=== PATIENT | female | born 1985 | race Caucasian/White ===

== ENCOUNTER 2016-09-06 06:47 | Outpatient (CLI) | payer BC, OTHER | END 2016-09-06 06:48 | disposition home or self-care (01) | DX: Z36 Encounter for antenatal screening of mother (principal) ==

== ENCOUNTER 2016-11-30 07:34 | Outpatient (CLI) | payer OTHER | END 2016-11-30 07:35 | disposition home or self-care (01) | DX: Z34.82 Encounter for supervision of other normal pregnancy, second trimester (principal) ==

== ENCOUNTER 2016-12-26 16:29 | Outpatient (CLI) | payer OTHER ==
[2016-12-26 17:51] LABS: HCT - HEMATOCRIT 38.3 % (37.0-47.0); HGB - HEMOGLOBIN 13.2 g/dL (12.0-16.0); MEAN CORPUSCULAR HEMOGLOBIN 32.7 pg (27.0-31.0); MEAN CORPUSCULAR HGB CONC 34.4 g/dL (32.0-36.0); MEAN PLATELET VOLUME 8.2 fL (7.9-10.8); RED BLOOD COUNT 4.03 10^6/uL (4.20-5.40); RED CELL DISTRIBUTION WIDTH 13.5 % (12.0-15.0)
== END 2016-12-26 16:30 | disposition home or self-care (01) ==
LOC: LAB 16:29
PROVIDERS: ATTEND Nurse Practitioner Obstetrics & Gynecology
DX: Z36 Encounter for antenatal screening of mother (principal)
CPT/HCPCS: 36415; 82950; 86850

== ENCOUNTER 2017-01-31 08:00 | Outpatient (CLI) | payer OTHER | END 2017-01-31 08:01 | LOC: LAB.R 08:00 | PROVIDERS: ATTEND Nurse Practitioner Obstetrics & Gynecology | DX: Z11.3 Encounter for screening for infections with a predominantly sexual mode of transmission (principal) | CPT/HCPCS: 87491; 87591 ==

== ENCOUNTER 2017-02-13 08:00 | Outpatient (CLI) | payer OTHER | END 2017-02-13 08:01 | disposition home or self-care (01) | LOC: LAB.R 08:00 | PROVIDERS: ATTEND Nurse Practitioner Obstetrics & Gynecology | DX: Z36 Encounter for antenatal screening of mother (principal) | CPT/HCPCS: 87081 ==

== ENCOUNTER 2017-03-20 23:29 | Inpatient (IN) | payer OTHER ==
[2017-03-21] MEDS ORDERED: LACTATED RINGERS 1,000 ML IV ONE (00:11)
[2017-03-21] MEDS ORDERED: MINERAL OIL LIGHT 10 ML MC ONE (00:11)
[2017-03-21] MEDS ORDERED: LIDOCAINE 1% 50 ML MDV ONE (00:11)
[2017-03-21] MEDS ORDERED: SODIUM CHLORIDE FLUSH 0.9% 10 ML SYRINGE IVP ONE (00:12)
[2017-03-21] MEDS ORDERED: OXYTOCIN/LACTATED RINGERS 250 ML IV ONE ×2 (00:12→03:13)
--- NOTE | 2017-03-21 00:34 | HISTORY & PHYSICAL EXAMINATION ---
Admit History - Instructions [place]/Slash: -Left hand click circles element as positive or present. -Right hand click slashes element as negative or not present. - Visit Reason Visit Reason: Contractions - : 3 Parity: 2 Premature: 0 Ectopic: 0 : 0 Care: positive: [facility] (Pt started her OB care at 8 weeks. 12 Visits. Pt had an elivated 50 gm at 185, was unable to tolerate 3 hour gtt. did fasting and 2 hour PP Pt relates that all were normal.) Risk/History: positive: None Smoking Status: Never smoker - Mother's Labs Mother's Blood Type: positive: A Mother's RH: positive: Positive GBS: positive: Group B Step Negative Rubella Status: positive: Equivocal Meds/Allgy - Allergies Allergies/Adverse Reactions: Allergies Allergy/AdvReac Type Severity Reaction Status Date / Time Penicillins Allergy Rash Verified 03/21/17 00:36 Physical - Abdominal Exam Vital Signs: Temp Pulse Resp BP Pulse Ox 37.0 C 100 18 139/78 H 98 03/20/17 23:44 03/20/17 23:44 03/20/17 23:44 03/20/17 23:44 03/20/17 23:44 Contraction Intensity: positive: Moderate Uterine Resting Tone: positive: Soft - Monitoring Heart Rate Baseline: 150 Strip Review: positive: Category I - Presentation Presentation: positive: Vertex - Vaginal Exam Membranes: positive: Membranes intact Dilation (in cm): 5 cm Effacement (%): 90% Station: positive: 0 Cervical Position: positive: Midposition - Speculum Exam Speculum Exam Performed: positive: No - Other Notes Labor Progress Note/Additional Text: Pt noted contractions at about 1700. Had her membranes in the clinic today. noted spotting following. Contractions became constant at 2000 adn strong at 2230. Denies SROM but notes FM. Plan for Labor - Plan For Labor Plan for Labor: Pt is undecided about Epidural. Anticipate .
[2017-03-21] MEDS ORDERED: fentaNYL 100 MCG/2 ML VIAL IVP PRN (00:43)
[2017-03-21] MEDS ORDERED: SODIUM CHLORIDE FLUSH 0.9% 10 ML SYRINGE IVP PRN ×2 (00:43→01:07)
[2017-03-21] MEDS ORDERED: LACTATED RINGERS 1,000 ML IV SCH ×3 (01:00→04:00)
[2017-03-21 01:10] LABS: BASOPHILS # (AUTO) 0.1 10^3/uL (0.0-0.1); BASOPHILS % (AUTO) 0.4 %; EOSINOPHILS # (AUTO) 0.1 10^3/uL (0.0-0.7); EOSINOPHILS % (AUTO) 0.4 %; HCT - HEMATOCRIT 40.3 % (37.0-47.0); HGB - HEMOGLOBIN 13.8 g/dL (12.0-16.0); LYMPHOCYTES # (AUTO) 2.4 10^3/uL (1.5-3.5); LYMPHOCYTES % (AUTO) 17.8 %; MEAN CORPUSCULAR HEMOGLOBIN 32.6 pg (27.0-31.0); MEAN CORPUSCULAR HGB CONC 34.3 g/dL (32.0-36.0); MEAN CORPUSCULAR VOLUME 94.9 fL (81.0-99.0); MEAN PLATELET VOLUME 9.1 fL (7.9-10.8); MONOCYTES # (AUTO) 0.8 10^3/uL (0.0-1.0); NEUTROPHILS % (AUTO) 75.4 %; NUCLEATED RED BLOOD CELLS AUTO 0.1 /100WBC; RED BLOOD COUNT 4.24 10^6/uL (4.20-5.40); RED CELL DISTRIBUTION WIDTH 14.1 % (12.0-15.0); UNCORRECTED WHITE BLOOD COUNT 13.3 x10^3/uL; WHITE BLOOD COUNT 13.3 x10^3/uL (4.8-10.8)
--- NOTE | 2017-03-21 01:36 | PREOP HISTORY & PHYSICAL ---
DATE OF ADMISSION/SURGERY: 03/21/2017 IDENTIFICATION: The patient is a 31-year-old G3, P2, AB0 female whose last menstrual period was 12 June 2016. She was unsure of this, so her EDC is determined by an 8-week ultrasound. This gives her an EDC of 17 March 2017, making her 40 weeks and 4 days. CHIEF COMPLAINT: Contractions. HISTORY OF PRESENT ILLNESS: The patient was seen in the clinic on the , at which time she was examined. Her cervix at that time was 1 cm and effaced. She had her membranes striped at her request. At that time, she was noted to be 3/75 %/-2 mid position and soft. Following this, she developed some spotting, as well as irritability at 1700. These became constant at 1999 and became painful at 2230. She presented here to Labor and Delivery at about 11:12. At that time her examination per nursing was noted to be 5 cm,/90%/0 station, vertex. While in Labor and Delivery, she is now noted to be leaking fluid from her cervix which was Nitrazine positive. OBSTETRIC HISTORY: The patient started her OB care at roughly 8 weeks' EGA. She had an ultrasound early on for dating criteria. Her OB care was significant in that she had an elevated 50 gram Glucola at 185. However, she was unable to tolerate the 3-hour GTT. The patient relates that she was monitored with her blood sugars fasting and to postprandials and these were noted to be within normal limits. The remainder of her course has been unremarkable. LABORATORY: Her laboratory shows her to be A positive. She is rubella equivocal. Her hepatitis B, HIV, GC and chlamydia were all negative. PHYSICAL EXAMINATION: The patient is a well-developed, well-nourished female. She is in moderate distress at this time. VITAL SIGNS: Stable. HEENT: Pupils are equal, round. Extraocular muscles are intact. HEART: Regular rate and rhythm without murmurs. LUNGS: Buckner are clear without rales or wheezes. ABDOMEN: Gravid, nontender. She is having intermittent contractions roughly every 3 minutes. Nursing exam showed her cervix to be 5 cm, 90% was 0 station. NEUROLOGIC: DTRs are 3+. She also has swelling. Her blood pressure is normal at this time. IMPRESSION: 1. A 31-year-old G3, P2 female 40.4 weeks gestation. 2. Active labor. 3. Spontaneous rupture of membranes. 4. Rubella equivocal. PLAN: Will monitor the patient. Will administer an epidural at the patient request. Will anticipate a spontaneous vaginal delivery. JOB #: [id number] EXT JOB #:[id number] MTDD
--- NOTE | 2017-03-21 02:08 | PROVIDER PROGRESS NOTE ---
Labor Progress Note - Uterine Monitoring Uterine Monitoring Mode: positive: External toco Contraction Frequency (min/apart): 3 Contraction Intensity: positive: Strong Uterine Resting Tone: positive: Soft - Monitoring Monitor Mode: positive: External ultrasound Heart Rate Baseline: 150 Heart Rate Variability: positive: Moderate (6-25 bmp) Accelerations: positive: Absent Decelerations: positive: Early Strip Review: positive: Category II - Vaginal Exam Dilation (in cm): 9 Effacement (%): 90% Station: 0 Cervical Position: Anterior - Labor Progress Note Labor Progress Note/Additional Text: Progressing. Pt offered AROM of forbag or Epidural placement. Pt elected to Have AROM.
--- NOTE | 2017-03-21 03:08 | DELIVERY NOTE ---
Delivery Note - Labor Labor: positive: Spontaneous - Delivery Method Delivery Method: positive: Spontaneous vaginal delivery - Presentation Presentation: positive: Vertex, OA - occiput anterior - Nuchal Cord Nuchal Cord: positive: Present (x1), Reduced (moderate difficulty) - Anesthetic Anesthetic Type: Anesthetic: positive: Lidocaine - 1% plain Volume: positive: Other (30 ml) - Amniotic Fluid Description Amniotic Fluid Description: positive: Clear (Second stage mech) - Episiotomy Type Episiotomy Type: positive: Midline - Laceration Laceration: positive: 2nd degree (without any extension) - Suture Suture Type: positive: Vicryl Suture Size: positive: 3-0 - Delivery Outcome Delivery Outcome: positive: Livebirth (Apgars 7/9) - Caro: positive: Suctioned, Bulb syringe, Stimulated sex: positive: Male (Bradley, Apgars 7/9) - Cord Cord: positive: 3 vessels - Placenta Placenta: positive: Intact, Spontaneous - Estimated Blood Loss Estimated Blood Loss (in cc): 250 - Delivery Comments (Free Text/Narrative) Delivery Comments (Free Text/Narrative): Pt reached complete at 0221. pushed well. an MLE was cut secondary to deceleration to the 90. At 0234 Head delivered. Nucal cord X1 was reduced with moderate difficulty. Mild shoulder dystocia responded to Mc Brock maneuvers. 45 second delay. Placenta followed at 0241.
[2017-03-21] MEDS ORDERED: IBUPROFEN 800 MG TABLET PO ONE (03:13)
[2017-03-21] MEDS ORDERED: WITCH HAZEL/GLYCERIN 1 EACH MED..PAD TOP PRN (03:13)
[2017-03-21] MEDS ORDERED: MEASLES,MUMPS & RUBELLA VACC 0.5 ML VIAL SUBQ ONE (03:13)
[2017-03-21] MEDS ORDERED: HYDROCORTISONE 1% CREAM 28 GM TUBE PR PRN (03:13)
[2017-03-21] MEDS ORDERED: oxyCODONE 5 MG TABLET PO PRN (03:13)
[2017-03-21] MEDS ORDERED: ONDANSETRON 4 MG/2 ML VIAL IVP PRN (03:13)
[2017-03-21] MEDS: SODIUM CHLORIDE FLUSH 0.9% 10 ML SYRINGE IVP SCH ×2 (04:30→14:40)
[2017-03-21] MEDS ORDERED: SODIUM CHLORIDE FLUSH 0.9% 10 ML SYRINGE IVP SCH (06:00)
[2017-03-21] MEDS: ACETAMINOPHEN 500 MG TABLET PO SCH ×3 (06:13→22:53)
[2017-03-21] MEDS: HYDROCORTISONE/PRAMOXINE 10 GM PR PRN ×2 (09:00→22:39)
[2017-03-21] MEDS: IBUPROFEN 800 MG TABLET PO SCH ×4 (09:01→22:13)
[2017-03-21] MEDS: SIMETHICONE CHEW 80 MG TABLET PO SCH ×3 (14:39→22:53)
[2017-03-21] MEDS: DOCUSATE SODIUM 100 MG CAPSULE PO SCH (22:13)
[2017-03-22] MEDS: ACETAMINOPHEN 500 MG TABLET PO SCH ×2 (01:42→09:38)
[2017-03-22] MEDS: IBUPROFEN 800 MG TABLET PO SCH (05:32)
[2017-03-22] MEDS: SIMETHICONE CHEW 80 MG TABLET PO SCH (05:33)
--- NOTE | 2017-03-22 09:13 | PROVIDER PROGRESS NOTE ---
Subjective - General Admit Date: 03/20/17 Procedure Date: 03/21/17 Post Op Days: 1 Procedure Performed: - Review of Systems General: positive: No symptoms (Pain 0-1/10. Breast feeding) Psychiatric: positive: No symptoms Objective - Patient Data Reviewed Vital Signs: Yes Vital Signs: Vital Signs x48h Temp Pulse Resp BP Pulse Ox 03/22/17 04:58 36.4 C L 71 16 103/66 97 Weight: Weight 03/20/17 03/21/17 03/22/17 23:59 23:59 23:59 Weight (kg) 107.048 kg 107.048 kg Intake & Output: Intake and Output Totals x24h 03/20/17 03/21/17 03/22/17 23:59 23:59 23:59 Intake Total 2100 Output Total 900 Balance 1200 - Lab Results Lab Results: 03/21/17 00:20 - Current Medications Current Medications: Current Medications Generic Name Dose Route Start Last Admin Trade Name Freq PRN Reason Stop Dose Admin Acetaminophen 1,000 mg 03/21/17 04:00 03/22/17 01:42 Tylenol PO 1,000 mg Q8H CONNOR Administration Docusate Sodium 100 mg 03/21/17 21:00 03/21/17 22:13 Colace 100mg Capsule PO 100 mg BID CONNOR Administration Hydrocortisone/Pramoxine 1 spray 03/21/17 03:13 03/21/17 22:39 Epifoam LA 20 spray QID PRN Administration Hemorrhoids Ibuprofen 800 mg 03/21/17 04:00 03/22/17 05:32 Motrin PO Not Given Q6H CONNOR Simethicone 80 mg 03/21/17 06:00 03/22/17 05:33 Mylicon PO Not Given TID [facility] - Physical Exam General Appearance: positive: No acute distress, Alert Eyes Bilateral: positive: Normal inspection Respiratory: positive: Chest non-tender, No respiratory distress, Breath sounds nml Cardiovascular: positive: Regular rate & rhythm, No murmur Abdomen: positive: Non-tender, Mass (U-2) Extremities: positive: Non-tender, Pedal edema. negative: Calf tenderness, Flaco's sign/cords Impression/Plan - Problem List Problem List: S/P with MLE. Both baby andmother doing well. Discussed Breast feeding, mastitis, Contraception. will be using Condoms Pelvic rest 6 weeks. Discharge Motrin 800mg Colace 100 mg
--- NOTE | 2017-03-22 09:17 | Discharge Plan ---
Discharge Plan Disposition: 01 Home, Self Care Condition: Good Diet: Regular Activity Restrictions: pelvic rest 6 wks Shower Restrictions: No Driving Restrictions: No Weight Bearing: Full Weight No Smoking: If you smoke, Please STOP! Call for help. Follow-up with: Nai Lara CNM, ARNP [Provider Admit Priv/Credential] -
[2017-03-22] MEDS: DOCUSATE SODIUM 100 MG CAPSULE PO SCH (09:38)
[2017-03-22 09:59] VITALS: BP 127/78
[2017-03-22] MEDS ORDERED: MEASLES,MUMPS & RUBELLA VACC 0.5 ML VIAL SUBQ ONE (10:00)
[2017-03-22] MEDS: HYDROCORTISONE/PRAMOXINE 10 GM PR PRN (10:01)
--- NOTE | 2017-03-22 11:21 | Labor Flowsheet ---
Labor Flowsheet Datetime Report Generated by CPN: 03/22/2017 11:20 Datetime: 03/22/2017 09:56 VITAL SIGNS NBP Sys/Angela/Mean (mmHg): 127 : 78 : 87 Pulse: 90 COMMUNICATION LaborFlag: Labor Datetime: 03/21/2017 03:15 SpO2 (%): 99 Datetime: 03/21/2017 02:34 UTERINE ACTIVITY Monitor Mode: External Frequency (min): 1.5-2 Quality: Strong Duration (sec): 50-80 Resting Tone (Palpate): Relaxed Monitor Interventions for FHR: Ultrasound Adjusted Category: of a viable male over a 2nd degree midline epis. Tight nuchal cord x 1 that w as reduced before delivery of the body. Baby rotated to left shoulder being anterior with a mild erika ulder dystocia that resolved with Beronica maneuver. Datetime: 03/21/2017 02:30 Actions for Decelerations: Oxygen Applied; IV Bolus; Other (Annotations: Dr Gonzales here, anterior lip reduced and Danya pushing well. FHR down to 80-110. RT called to come for delivery.) Datetime: 03/21/2017 02:16 VAGINAL EXAM Dilatation (cm): 9.5 Effacement (%): 100 Station: 1 Exam by: Dr Gonzales (Annotations: Anterior lip reduced) Datetime: 03/21/2017 02:00 Contraction Comments: wanting to push Datetime: 03/21/2017 01:54 Membranes Rupture Method: Artificial (Annotations: forebag) Amniotic Fluid Color: Clear Amniotic Fluid Amount: Moderate Amniotic Fluid Odor: Normal Vaginal Bleeding: Normal Show Datetime: 03/21/2017 01:50 Membrane Status: Ruptured (Annotations: Bulging forebag, Dr Giem coming to room to rupture) Datetime: 03/21/2017 01:30 Stage of : Labor FHR Baseline Changes: No Baseline Change PAIN Pain Relief Measures: Wants and epidural, out of the tub Datetime: 03/21/2017 01:22 PATIENT CARE IV/Blood Work: Up to the toilet and voided Datetime: 03/21/2017 01:15 Comments: Mom restless and difficult to keep on monitor Datetime: 03/21/2017 01:00 Monitor Interventions for UA: Gordon Adjusted Pattern: Normal: <= 5 Contractions in 10 Minutes ASSESSMENT A Monitor Mode: Telemetry FHR Baseline Rate : 150 Variability: Moderate 6-25 bpm Accelerations: None Decelerations: Danya is in the jacuzzi tub. [place] during contractions, FHR tracing intermittantly tracing related to maternal movement ASSESSMENT D Category: Category I
--- NOTE | 2017-03-22 11:41 | DISCHARGE SUMMARY ---
DATE OF ADMISSION: 03/20/2017 DATE OF DISCHARGE: 03/22/2017 ADMITTING DIAGNOSES 1. 40 weeks 4 days gestation. 2. Active labor. DISCHARGE DIAGNOSES 1. 40 weeks 4 days gestation. 2. Active labor. 3. Plus spontaneous vaginal delivery with midline episiotomy. PROCEDURES 1. Spontaneous vaginal delivery. 2. Midline episiotomy. PRESENTING HISTORY: The patient is a 31-year-old G3, P2 female whose LMP was 06/12 giving her an EDC of 03/17/2017. This made her 40 weeks and 4 days. The patient was seen on 03/20, at which time she wa s noted to be 3 cm, 75% and -1. That evening, she developed spotting with contractions, which became constant at 8 o'clock and very painful at 10:30. She presented to Labor and Delivery at 11:12, at [facility] time an exam showed her to be 5 cm, 90% effaced, 0 station. She was not noted to be leaking any fl uid at that time. Her OB care was unremarkable. Her labs were all within normal limits with the excep tion of elevated 50 gram Glucola 185 however she was unable to tolerate her 3-hour GTT, but her follo w up blood sugars and fastings were all noted to be within normal limits. LABORATORY: CBC on admission showed a white count of 13.3, hemoglobin 13.8, hematocrit 40.3 with plat elets of 190. HOSPITAL COURSE: The patient was admitted and allowed to labor. She was noted to have spontaneous lauro kage; however, she was artificially ruptured at 9 cm. She declined any epidural or pain medication du ring labor. Her contractions became very intense. She, upon rupture of membranes, went to complete qu ite quickly and delivered a live male infant with Apgars of 7 and 9 over a midline episiotomy. Her pl acenta delivered spontaneously complete. Blood loss during delivery was roughly 250 mL. Her postpartu m course has been unremarkable. She is eating a regular diet. Her pain is well controlled on Motrin. She is being discharged to home today on Motrin 800 mg, as well as Colace 100 mg. She is instructed t o follow up in the office in 6 weeks. She is instructed to monitor her breasts for signs of infection . She has been instructed that is not adequate contraception and she plans to use condo ms. JOB #: [id number] EXT JOB #:[id number]
== END 2017-03-22 11:19 | disposition home or self-care (01) | DRG 775 ==
LOC: WFO 23:29 → FBP 23:30 → WFO 23:54 → FBP 23:55
PROVIDERS: ADMIT Obstetrics & Gynecology; ATTEND Obstetrics & Gynecology
PROC: 10E0XZZ Delivery of Products of Conception, External Approach (ICD-10-PCS; principal; 2017-03-21)
PROC: 0W8NXZZ Division of Female Perineum, External Approach (ICD-10-PCS; 2017-03-21)
PROC: 10907ZC Drainage of Amniotic Fluid, Therapeutic from Products of Conception, Via Natural or Artificial Opening (ICD-10-PCS; 2017-03-21)
DX: O66.0 Obstructed labor due to shoulder dystocia (principal); Z3A.40 40 weeks gestation of pregnancy; Z37.0 Single live birth; O69.81X0 Labor and delivery complicated by cord around neck, without compression, not applicable or unspecified; O77.0 Labor and delivery complicated by meconium in amniotic fluid; O76 Abnormality in fetal heart rate and rhythm complicating labor and delivery
CPT/HCPCS: 85025; 99213

== ENCOUNTER 2017-12-20 08:00 | Outpatient (CLI) | payer BC, OTHER | END 2017-12-20 23:59 | disposition home or self-care (01) | LOC: LAB.R 08:00 | PROVIDERS: ATTEND Nurse Practitioner Obstetrics & Gynecology | DX: N89.8 Other specified noninflammatory disorders of vagina (principal) | CPT/HCPCS: 87480; 87510; 87660 ==

== ENCOUNTER 2019-12-15 08:00 | Outpatient (CLI) | payer BC, OTHER ==
[2019-12-15 18:03] LABS: ALBUMIN 4.3 g/dL (3.2-5.5); ALBUMIN/GLOBULIN RATIO 1.5 (1.0-2.2); ALKALINE PHOSPHATASE 56 IU/L (42-121); ALT ALANINE AMINOTRANSFERASE 31 IU/L (10-60); AST ASPARTATE AMINOTRANSFERASE 25 IU/L (10-42); BILIRUBIN,TOTAL 0.6 mg/dL (0.2-1.0); BUN - BLOOD UREA NITROGEN 15 mg/dL (6-20); CALCIUM 9.7 mg/dL (8.5-10.3); CARBON DIOXIDE - CO2 26 mmol/L (21-32); CHLORIDE 103 mmol/L (101-111); CHOL/HDL RATIO 4.1 (<4.4); CHOLESTEROL 220 mg/dL; CREATININE 0.7 mg/dL (0.4-1.0); GLUCOSE 104 mg/dL (70-100); HDL CHOLESTEROL 54 mg/dL; LDL CHOLESTEROL,CALCULATED 121 mg/dL; LDL/HDL RATIO 2.2 (<4.4); SODIUM 138 mmol/L (135-145); TOTAL PROTEIN 7.2 g/dL (6.7-8.2); VLDL CHOLESTEROL 45 mg/dL
[2019-12-15 18:11] LABS: HB2 TOTAL 15.6 g/dL; HEMOGLOBIN A1C 0.47 g/dL; HEMOGLOBIN A1C % 4.9 % (4.6-6.2)
[2019-12-15 19:13] LABS: HCG,QUALITATIVE BLOOD NEGATIVE
== END 2019-12-15 23:59 | disposition home or self-care (01) ==
LOC: LAB.WCP 08:00
PROVIDERS: ATTEND Family Medicine
DX: Z00.00 Encounter for general adult medical examination without abnormal findings (principal); Z86.32 Personal history of gestational diabetes; B37.3 Candidiasis of vulva and vagina
CPT/HCPCS: 36415; 80053; 80061; 83036; 83721; 84703

== ENCOUNTER 2021-03-20 08:04 | Outpatient (CLI) | payer OTHER ==
[2021-03-20 12:06] LABS: BASOPHILS % (AUTO) 0.6 %; EOSINOPHILS # (AUTO) 0.1 10^3/uL (0.0-0.7); EOSINOPHILS % (AUTO) 1.3 %; HCT - HEMATOCRIT 45.9 % (37.0-47.0); HGB - HEMOGLOBIN 15.2 g/dL (12.0-16.0); LYMPHOCYTES # (AUTO) 1.9 10^3/uL (1.5-3.5); MEAN CORPUSCULAR HEMOGLOBIN 32.1 pg (27.0-31.0); MEAN CORPUSCULAR HGB CONC 33.1 g/dL (32.0-36.0); MEAN PLATELET VOLUME 10.5 fL (7.9-10.8); MONOCYTES # (AUTO) 0.4 10^3/uL (0.0-1.0); MONOCYTES % (AUTO) 7.1 %; NEUTROPHILS # (AUTO) 3.7 10^3/uL (1.5-6.6); NEUTROPHILS % (AUTO) 59.7 %; PLT - PLATELET COUNT 254 10^3/uL (130-450); RED BLOOD COUNT 4.73 10^6/uL (4.20-5.40); RED CELL DISTRIBUTION WIDTH 12.4 % (12.0-15.0); WHITE BLOOD COUNT 6.2 x10^3/uL (4.8-10.8)
[2021-03-20 12:29] LABS: ALBUMIN 4.7 g/dL (3.2-5.5); ALBUMIN/GLOBULIN RATIO 1.9 (1.0-2.2); ALKALINE PHOSPHATASE 51 IU/L (42-121); ALT ALANINE AMINOTRANSFERASE 21 IU/L (10-60); AST ASPARTATE AMINOTRANSFERASE 18 IU/L (10-42); BILIRUBIN,TOTAL 0.8 mg/dL (0.2-1.0); BUN - BLOOD UREA NITROGEN 13 mg/dL (6-20); CALCIUM 9.5 mg/dL (8.5-10.3); CARBON DIOXIDE - CO2 28 mmol/L (21-32); CHLORIDE 101 mmol/L (101-111); CHOL/HDL RATIO 3.3 (<4.4); CHOLESTEROL 204 mg/dL; CREATININE 0.8 mg/dL (0.4-1.0); GFR - MDRD 83 (>89); GLUCOSE 102 mg/dL (70-100); HDL CHOLESTEROL 61 mg/dL; LDL CHOLESTEROL,CALCULATED 122 mg/dL; SODIUM 137 mmol/L (135-145); TOTAL PROTEIN 7.2 g/dL (6.7-8.2); TRIGLYCERIDES 104 mg/dL; VLDL CHOLESTEROL 21 mg/dL
[2021-03-20 12:38] LABS: THYROID STIMULATING HORMONE 2.4 uIU/mL (0.34-5.60)
[2021-03-20 12:48] LABS: ESTIMATED AVERAGE GLUCOSE 97 mg/dL (70-100)
== END 2021-03-20 08:05 | disposition home or self-care (01) ==
LOC: LAB.N 08:04
PROVIDERS: ATTEND Family Medicine
DX: Z00.00 Encounter for general adult medical examination without abnormal findings (principal)
CPT/HCPCS: 36415; 80053; 80061; 83036; 83721; 84443; 85025